=== PATIENT | male | born 1970 | race Caucasian/White ===

== ENCOUNTER → 2016-06-20 | Outpatient (CLI) | payer OTHER | LOC: CIMAGING 09:07 | PROVIDERS: ATTEND Internal Medicine Nephrology | DX: N20.0 Calculus of kidney (principal) | CPT/HCPCS: 74176-PO ==

== ENCOUNTER 2016-12-27 08:59 | Outpatient (CLI) | payer OTHER ==
[2016-12-27] MEDS ORDERED: NALOXONE HCL 0.4 MG/ML INJ ONE (09:11)
[2016-12-27] MEDS ORDERED: FLUMAZENIL 0.5 MG/5 ML MDV IVP ONE (09:11)
[2016-12-27] MEDS ORDERED: MIDAZOLAM 2 MG/2 ML VIAL ONE (09:11)
[2016-12-27] MEDS ORDERED: fentaNYL 100 MCG/2 ML INJ ONE (09:12)
[2016-12-27] MEDS ORDERED: GLUCOSE-INSTA 15 GM TUBE ONE (09:12)
[2016-12-27] MEDS ORDERED: LIDOCAINE 1% 300 MG/30 ML SDV ONE (09:49)
[2016-12-27] MEDS ORDERED: NS 1,000 ML IV SCH (10:00)
[2016-12-27] MEDS ORDERED: D50W 25 GM/50 ML SYR IVP ONE (10:45)
[2016-12-27] MEDS ORDERED: D50W 25 GM/50 ML VIAL IV ONE (10:45)
[2016-12-27 14:40] VITALS: BP 123/72; RESP 16; O2SAT 99
== END 2016-12-27 15:05 | disposition home or self-care (01) ==
LOC: FIMAGING 08:59
PROVIDERS: ATTEND Obstetrics & Gynecology
PROC: BF45ZZZ Ultrasonography of Liver (ICD-10-PCS; principal; 2016-12-27 12:01)
PROC: 0FB03ZX Excision of Liver, Percutaneous Approach, Diagnostic (ICD-10-PCS; principal; 2016-12-27 12:01)
DX: B18.2 Chronic viral hepatitis C (principal); E11.9 Type 2 diabetes mellitus without complications; I10 Essential (primary) hypertension
CPT/HCPCS: J2250; J2310; J3010